=== PATIENT | female | born 1955 | race Caucasian/White ===

== ENCOUNTER → 2018-05-01 | Outpatient (CLI) | payer OTHER ==
[~2018-05-01] MED LIST: ALLO100T PO; ALPR-557 PO; CALC-250 PO; CARV25TA PO; CITA20TA4 PO; CYAN100053 IJ; D50KC PO; ENAL20TA PO; FAMO20TA5 PO; FURO40TA4 PO; KCL20TCR PO; MAGN400T6 PO; METF-380 PO; NABU750T PO; PRD20T PO; PREG75CA PO; PRV20T PO; TRAM50TA2 PO; VITAMIN C 1000MG PO
--- NOTE | 2018-05-01 17:28 | Diagnostic Imaging Report ---
INDICATION: Low back pain radiating into the right leg. TIME OF EXAM: 5:16 PM FINDINGS: Three-view lumbar spine demonstrates normal curvature and alignment. Vertebral body heights are maintained. No acute compression fracture is seen. Generalized degenerative disc disease is seen with variable disc space narrowing and marginal spurring, greatest at L3-4 level. IMPRESSION: Lumbar spondylosis. No acute bony abnormality is detected. Dictated by: Dictated on workstation # [id number]
== END ==
LOC: RAD 16:36
PROVIDERS: ATTEND Family Medicine
DX: M47.26 Other spondylosis with radiculopathy, lumbar region (principal)
CPT/HCPCS: 72100

== ENCOUNTER 2018-07-25 15:38 | Outpatient (RCR) | payer OTHER | END 2018-08-28 | disposition home or self-care (01) | PROVIDERS: ATTEND Family Medicine | DX: M54.5 Low back pain (principal) ==

== ENCOUNTER → 2021-05-05 | Outpatient (CLI) | payer MEDICARE ==
[~2021-05-05] MED LIST changes: +CITA20TA9 PO; +CYAN100092 IJ; +ENAL20TA16 PO; +METF-399 PO; +NABU-95 PO; +PANT40TA2 PO; +SPIR100T4 PO
--- NOTE | 2021-05-05 16:00 | Diagnostic Imaging Report ---
PROCEDURE: US renal bilateral. TECHNIQUE: Multiple real-time grayscale images were obtained over the kidneys in various projections, bilaterally. INDICATION: Chronic kidney disease stage IIIB. FINDINGS: Right kidney measures 10.0 x 4.5 x 6.0 cm and the left kidney measures 10.7 x 4.6 x 4.8 cm. Cortical thickness and echogenicity is normal, bilaterally. No calculi are seen. No hydronephrosis is detected. Urinary bladder is unremarkable. Bilateral ureteral jets were visualized. IMPRESSION: Unremarkable renal ultrasound. Dictated by: Dictated on workstation # [id number]
== END ==
LOC: RAD 15:15
PROVIDERS: ATTEND Internal Medicine Nephrology
DX: I12.9 Hypertensive chronic kidney disease with stage 1 through stage 4 chronic kidney disease, or unspecified chronic kidney disease (principal); E11.22 Type 2 diabetes mellitus with diabetic chronic kidney disease; N18.32 Chronic kidney disease, stage 3b; D63.1 Anemia in chronic kidney disease; E78.49 Other hyperlipidemia
CPT/HCPCS: 76770

== ENCOUNTER → 2022-07-08 | Outpatient (CLI) | payer MEDICARE, OTHER | LOC: CARD 14:23 | PROVIDERS: ATTEND Pediatrics | DX: I07.1 Rheumatic tricuspid insufficiency (principal); I20.8 Other forms of angina pectoris | CPT/HCPCS: 93306 ==